=== PATIENT | female | born 1945 | race Caucasian/White ===

== ENCOUNTER 2021-01-31 08:16 | Inpatient (IN) ==
[2021-01-31] MEDS ORDERED: Al Hydrox/Mg Hydrox/Simet LIQ 30 ML UDC PO PRN (17:14)
[2021-01-31] MEDS ORDERED: Enoxaparin 40 MG/0.4 ML SYR SUBCUT SCH (18:00)
[2021-01-31] MEDS ORDERED: Albuterol HFA INHALER 8 gm MDI INH PRN (19:47)
[2021-01-31] MEDS: CMCS: Perphenazine 8 mg TAB (NF) PO SCH (21:51)
[2021-02-01] MEDS: SPIRIVA Respimat (tiotropium) 2.5 mcg/inh Inhaler INH SCH (07:31)
[2021-02-01] MEDS: Multivitamins/Minerals TAB PO SCH (09:36)
[2021-02-01] MEDS: CMCS: Perphenazine 8 mg TAB (NF) PO SCH ×2 (09:36→22:40)
[2021-02-01] MEDS: Enoxaparin 40 MG/0.4 ML SYR SUBCUT SCH (22:39)
[2021-02-02] MEDS: SPIRIVA Respimat (tiotropium) 2.5 mcg/inh Inhaler INH SCH (07:42)
[2021-02-02] MEDS: Multivitamins/Minerals TAB PO SCH (08:37)
[2021-02-02] MEDS: CMCS: Perphenazine 8 mg TAB (NF) PO SCH ×2 (08:37→21:39)
[2021-02-02] MEDS: Enoxaparin 40 MG/0.4 ML SYR SUBCUT SCH (21:40)
[2021-02-03] MEDS: SPIRIVA Respimat (tiotropium) 2.5 mcg/inh Inhaler INH SCH (07:48)
[2021-02-03] MEDS: CMCS: Perphenazine 8 mg TAB (NF) PO SCH ×2 (10:43→21:38)
[2021-02-03] MEDS: Multivitamins/Minerals TAB PO SCH (10:44)
[2021-02-03] MEDS: Enoxaparin 40 MG/0.4 ML SYR SUBCUT SCH (21:39)
[2021-02-04] MEDS: SPIRIVA Respimat (tiotropium) 2.5 mcg/inh Inhaler INH SCH (07:48)
[2021-02-04] MEDS: CMCS: Perphenazine 8 mg TAB (NF) PO SCH ×2 (11:10→21:04)
[2021-02-04] MEDS: Multivitamins/Minerals TAB PO SCH (11:13)
[2021-02-04] MEDS: Enoxaparin 40 MG/0.4 ML SYR SUBCUT SCH (21:03)
[2021-02-05] MEDS: SPIRIVA Respimat (tiotropium) 2.5 mcg/inh Inhaler INH SCH (07:44)
[2021-02-05] MEDS: Multivitamins/Minerals TAB PO SCH (09:44)
[2021-02-05] MEDS: CMCS: Perphenazine 8 mg TAB (NF) PO SCH ×2 (09:44→20:41)
[2021-02-05] MEDS: Enoxaparin 40 MG/0.4 ML SYR SUBCUT SCH (20:42)
[2021-02-06] MEDS: SPIRIVA Respimat (tiotropium) 2.5 mcg/inh Inhaler INH SCH (07:57)
[2021-02-06] MEDS: CMCS: Perphenazine 8 mg TAB (NF) PO SCH ×2 (09:50→21:11)
[2021-02-06] MEDS: Multivitamins/Minerals TAB PO SCH (09:50)
[2021-02-06] MEDS: Enoxaparin 40 MG/0.4 ML SYR SUBCUT SCH (21:10)
[2021-02-07] MEDS: CMCS: Perphenazine 8 mg TAB (NF) PO SCH (09:40)
[2021-02-07] MEDS: Multivitamins/Minerals TAB PO SCH (09:42)
[2021-02-07] MEDS: SPIRIVA Respimat (tiotropium) 2.5 mcg/inh Inhaler INH SCH (09:50)
[2021-02-07 11:40] VITALS: BP 106/42
== END 2021-02-07 15:25 | disposition home or self-care (01) | DRG 179 ==
LOC: SUATTDRO 08:16 → MED 08:16 → PREINTOOBSV 15:55 → PREOBSVTOIN 15:58
PROVIDERS: ADMIT Internal Medicine; ATTEND Internal Medicine

== ENCOUNTER 2022-09-30 11:06 | Inpatient (IN) ==
[2022-09-30] MEDS ORDERED: Lactated Ringers 1000 ml BAG 1,000 ML IV ONE (11:22)
[2022-09-30 12:21] LABS: Hematocrit 35.3 % (35-45); Hemoglobin 11.8 g/dL (11.5-14.3); Mean Corpuscular Hemoglobin 28.1 pg (27-33); Mean Corpuscular Hgb Conc 33.5 g/dL (31-36); Mean Corpuscular Volume 84.1 fL (80-97); Mean Platelet Volume 7.6 fL (7.5-11.2); Platelet Count 278 10^3/uL (150-450); Red Cell Distribution Width 15.5 % (12-17); White Blood Count 21.3 10^3/uL (3.8-11.8)
[2022-09-30 12:28] LABS: Albumin 3.6 g/dL (3.2-5.2); Albumin/Globulin Ratio 1.3 (1-3); Calcium 8.8 mg/dL (8.6-10.3); Creatinine, Serum 0.92 mg/dL (0.51-0.95); Globulin 2.8 g/dL (2-4); Magnesium 1.6 mg/dL (1.9-2.7); Potassium 3.3 mmol/L (3.5-5.0); Total Bilirubin 1.2 mg/dL (0.2-1.0); Total Protein 6.4 g/dL (6.4-8.9); eGFR CKD-EPI 64.9 (>60)
[2022-09-30 12:51] LABS: TSH Ultra Thyroid Stim Horm 1.17 mcIU/mL (0.34-5.60)
[2022-09-30 13:15] LABS: ABS Lymphocytes 0.7 10^3/uL (1.0-4.8); ABS Monocytes 1.7 10^3/uL (0.0-0.9); ABS Neutrophils 18.9 10^3/uL (1.5-7.6); Lymphocyte % 3.3 %
[2022-09-30] MEDS ORDERED: cefTRIAXone 1 gm/50 mL D5W 1 GM/50 ML BAG IV ONE (15:59)
[2022-09-30] MEDS ORDERED: Ondansetron 4 mg VIAL 2 MG/ML 2 ml VIAL IV PRN (16:20)
[2022-09-30] MEDS: Enoxaparin 40 MG/0.4 ML SYR SUBCUT SCH (16:41)
[2022-09-30] MEDS ORDERED: Albuterol HFA INHALER 8 gm MDI INH PRN (17:06)
[2022-09-30 17:24] LABS: Urine Appearance Cloudy; Urine Bilirubin Negative (Negative); Urine Blood 2+ (Negative); Urine Color Yellow; Urine Glucose Negative (Negative); Urine Ketones 1+ (Negative); Urine Nitrite Positive (Negative); Urine Protein 1+(30 mg/dL) (Negative); Urine Specific Gravity 1.008 (1.002-1.030); Urine Urobilinogen Negative (Negative)
[2022-09-30 17:27] LABS: High Sensitivity Troponin 1 Hr 55 pg/mL (<15)
[2022-09-30 17:28] LABS: Urine Bacteria 1+ (Absent); Urine Red Blood Cell 1+(3-5/hpf) (Absent); Urine Squamous Epithelial Cell Present (Absent); Urine White Blood Cell 2+(11-20/hpf) (Absent)
[2022-09-30] MEDS ORDERED: Magnesium Sulf 4 GM/100 ML IV 4,000 MG/100 ML BAG IVPB ONE (18:16)
[2022-09-30] MEDS ORDERED: NS 0.9% 1000 ml BAG 1,000 ML IV ONE (18:16)
[2022-09-30] MEDS ORDERED: Potassium Chlor 20 meq TAB.ER PO ONE (18:16)
[2022-09-30] MEDS: Mometasone/Formoter 200/5 MDI INH SCH (18:36)
[2022-09-30] MEDS: CMCS: Perphenazine 8 mg TAB (NF) PO SCH (22:49)
[2022-10-01 07:23] LABS: ABS Lymphocytes 0.6 10^3/uL (1.0-4.8); ABS Monocytes 0.8 10^3/uL (0.0-0.9); ABS Neutrophils 14.8 10^3/uL (1.5-7.6); Hematocrit 36.2 % (35-45); Hemoglobin 12.1 g/dL (11.5-14.3); Lymphocyte % 3.4 %; Mean Corpuscular Hemoglobin 28.4 pg (27-33); Mean Corpuscular Hgb Conc 33.4 g/dL (31-36); Mean Corpuscular Volume 85.1 fL (80-97); Mean Platelet Volume 7.6 fL (7.5-11.2); Platelet Count 241 10^3/uL (150-450); Red Blood Count 4.25 10^6/uL (3.63-4.92); Red Cell Distribution Width 15.6 % (12-17); White Blood Count 16.2 10^3/uL (3.8-11.8)
[2022-10-01] MEDS: Mometasone/Formoter 200/5 MDI INH SCH ×2 (07:26→19:10)
[2022-10-01 07:42] LABS: Calcium 8.5 mg/dL (8.6-10.3); Creatinine, Serum 0.93 mg/dL (0.51-0.95); Magnesium 2.8 mg/dL (1.9-2.7); Potassium 3.8 mmol/L (3.5-5.0); eGFR CKD-EPI 64.1 (>60)
[2022-10-01 08:36] LABS: Albumin 3.3 g/dL (3.2-5.2); Albumin/Globulin Ratio 1.2 (1-3); Direct Bilirubin 0.2 mg/dL (0.03-0.18); Globulin 2.7 g/dL (2-4); Indirect Bilirubin 0.5 mg/dL (0.3-1.0); Total Bilirubin 0.7 mg/dL (0.2-1.0)
[2022-10-01] MEDS ORDERED: Sulfur Hexaflouride MICROSPHR 25 MG VIAL ONE (09:21)
[2022-10-01] MEDS: Multivitamins/Minerals TAB PO SCH (10:36)
[2022-10-01] MEDS: Calcium/Vitamin D TAB 250/125 TAB PO SCH (10:37)
[2022-10-01] MEDS: CMCS: Perphenazine 8 mg TAB (NF) PO SCH ×2 (10:39→19:45)
[2022-10-01] MEDS ORDERED: Nicotine GUM 4MG FRUIT FLAVOR PO PRN (15:43)
[2022-10-01] MEDS: cefTRIAXone 1 gm/50 mL D5W 1 GM/50 ML BAG IV SCH (16:15)
[2022-10-01] MEDS: Enoxaparin 40 MG/0.4 ML SYR SUBCUT SCH (16:15)
[2022-10-02 06:58] LABS: ABS Lymphocytes 0.7 10^3/uL (1.0-4.8); ABS Monocytes 1.1 10^3/uL (0.0-0.9); Eosinophil % 0.1 %; Hematocrit 35.2 % (35-45); Hemoglobin 11.9 g/dL (11.5-14.3); Lymphocyte % 5.4 %; Mean Corpuscular Hemoglobin 28.4 pg (27-33); Mean Corpuscular Hgb Conc 33.8 g/dL (31-36); Mean Corpuscular Volume 84.1 fL (80-97); Mean Platelet Volume 7.7 fL (7.5-11.2); Platelet Count 236 10^3/uL (150-450); Red Blood Count 4.19 10^6/uL (3.63-4.92); Red Cell Distribution Width 15.4 % (12-17); White Blood Count 12.9 10^3/uL (3.8-11.8)
[2022-10-02 07:14] LABS: Calcium 8.6 mg/dL (8.6-10.3); Creatinine, Serum 0.77 mg/dL (0.51-0.95); Potassium 3.6 mmol/L (3.5-5.0); eGFR CKD-EPI 80.4 (>60)
[2022-10-02] MEDS: Multivitamins/Minerals TAB PO SCH (08:45)
[2022-10-02] MEDS: CMCS: Perphenazine 8 mg TAB (NF) PO SCH ×2 (08:46→20:17)
[2022-10-02] MEDS: Calcium/Vitamin D TAB 250/125 TAB PO SCH (08:46)
[2022-10-02] MEDS ORDERED: Senna TAB 8.6 mg TAB PO PRN (10:16)
[2022-10-02] MEDS ORDERED: Magnesium Hydroxide LIQ 30 ML UDC PO PRN (10:16)
[2022-10-02] MEDS: Polyethylene Glycol 3350 17 GM PACKET PO SCH (11:55)
[2022-10-02] MEDS: Enoxaparin 40 MG/0.4 ML SYR SUBCUT SCH (16:50)
[2022-10-02] MEDS: Mometasone/Formoter 200/5 MDI INH SCH ×2 (18:38→20:41)
[2022-10-02] MEDS: cefTRIAXone 1 gm/50 mL D5W 1 GM/50 ML BAG IV SCH (21:11)
[2022-10-03 06:57] LABS: ABS Lymphocytes 1.4 10^3/uL (1.0-4.8); ABS Monocytes 1.3 10^3/uL (0.0-0.9); ABS Neutrophils 6.6 10^3/uL (1.5-7.6); Eosinophil % 0.5 %; Hematocrit 32.9 % (35-45); Hemoglobin 11.2 g/dL (11.5-14.3); Lymphocyte % 14.5 %; Mean Corpuscular Hemoglobin 28.2 pg (27-33); Mean Corpuscular Hgb Conc 33.9 g/dL (31-36); Mean Platelet Volume 7.7 fL (7.5-11.2); Platelet Count 300 10^3/uL (150-450); Red Blood Count 3.96 10^6/uL (3.63-4.92); Red Cell Distribution Width 15.1 % (12-17); White Blood Count 9.4 10^3/uL (3.8-11.8)
[2022-10-03 07:11] LABS: Calcium 8.5 mg/dL (8.6-10.3); Creatinine, Serum 0.63 mg/dL (0.51-0.95); Potassium 3.6 mmol/L (3.5-5.0); eGFR CKD-EPI 92.5 (>60)
[2022-10-03] MEDS: Mometasone/Formoter 200/5 MDI INH SCH ×2 (07:59→19:18)
[2022-10-03] MEDS ORDERED: cefTRIAXone 1 gm/50 mL D5W 1 GM/50 ML BAG IV SCH (09:00)
[2022-10-03] MEDS: Multivitamins/Minerals TAB PO SCH (09:26)
[2022-10-03] MEDS: Calcium/Vitamin D TAB 250/125 TAB PO SCH (09:26)
[2022-10-03] MEDS: CMCS: Perphenazine 8 mg TAB (NF) PO SCH ×2 (09:27→21:01)
[2022-10-03] MEDS: Polyethylene Glycol 3350 17 GM PACKET PO SCH (09:28)
[2022-10-03] MEDS: Enoxaparin 40 MG/0.4 ML SYR SUBCUT SCH (17:51)
[2022-10-04] MEDS: Mometasone/Formoter 200/5 MDI INH SCH (07:27)
[2022-10-04] MEDS: CMCS: Perphenazine 8 mg TAB (NF) PO SCH (08:20)
[2022-10-04] MEDS: Calcium/Vitamin D TAB 250/125 TAB PO SCH (08:20)
[2022-10-04] MEDS: Polyethylene Glycol 3350 17 GM PACKET PO SCH (08:22)
[2022-10-04] MEDS: Multivitamins/Minerals TAB PO SCH (08:22)
[2022-10-04 11:27] VITALS: BP 135/83
== END 2022-10-04 11:30 | disposition home or self-care (01) | DRG 872 ==
LOC: ED 11:06 → EDHOLD 16:20 → SUATTDRO 16:20 → EDHOLD 20:21 → MED 20:42
PROVIDERS: ADMIT Internal Medicine; ATTEND Internal Medicine